=== PATIENT | male | born 1985 | race Caucasian/White ===

== ENCOUNTER 2019-01-25 00:55 | Emergency (ER) | payer SELFPAY ==
[~2019-01-25] VITALS: Ht 180.3 cm; Wt 116.7 kg
[2019-01-25 00:57] VITALS: BP 137/92
== END 2019-01-25 01:31 | disposition left against medical advice (07) ==
LOC: ED 00:55
DX: Z53.21 Procedure and treatment not carried out due to patient leaving prior to being seen by health care provider (principal)